=== PATIENT | female | born 1985 | race Hispanic/Latino ===

== ENCOUNTER 2017-05-01 07:15 | Inpatient (IN) | payer OTHER ==
[~2017-05-01] VITALS: Ht 157.5 cm; Wt 96.6 kg
[~2017-05-01 07:15] MED LIST: CETI-114 PO; COL100L PO; IBUP-1152 PO; PER5 PO
[2017-05-01] MEDS ORDERED: Phenylephrine/NS-PF 100 mCg/mL 5 mL Syringe IVPUSH ONE (15:46)
[2017-05-01] MEDS ORDERED: Morphine PF 1 mg/mL 10 mL Inj ONE (15:46)
[2017-05-01] MEDS ORDERED: Oxytocin 10 Unit/mL Inj ONE (15:46)
[2017-05-01] MEDS ORDERED: Ondansetron 2 mg/mL 2 mL Inj ONE (15:46)
[2017-05-01] MEDS ORDERED: Lactated Ringer's 1,000 ML IV SCH ×2 (15:53→20:01)
[2017-05-01] MEDS ORDERED: Hemorrhage Kit, Post Partum XX ONE ×2 (15:55→20:05)
[2017-05-01] MEDS ORDERED: Methylergonovine 0.2 mg/mL Inj IM PRN ×2 (15:55→20:05)
[2017-05-01] MEDS ORDERED: CeFAZolin Inj 2 GM in IV Premix 1 EACH IV SCH (15:55)
[2017-05-01] MEDS ORDERED: Sodium Citrate-Citric Acid 15 mL Solution PO SCH (15:55)
[2017-05-01] MEDS ORDERED: Carboprost 250 mCg/mL Inj IM PRN ×2 (15:55→20:05)
[2017-05-01] MEDS ORDERED: Oxytocin 10 Unit/mL Inj IM PRN ×2 (15:55→20:05)
[2017-05-01] MEDS: Lactated Ringer's 1,000 ML IV SCH ×2 (16:35→19:43)
[2017-05-01 16:41] LABS: Mean Corpuscular Hemoglobin 29.5 pg (27.0-35.0); Mean Corpuscular Volume 83.9 fL (81-100)
--- NOTE | 2017-05-01 18:25 | HP ---
[address] [address] HISTORY AND PHYSICAL PATIENT: TRISTAN SANDHU : 1985 MR#: [id number] ADMIT: 05/01/2017 JOB ID: [id number] [facility] NOTE: DATE: 05/01/2017 IDENTIFICATION: This patient is a 31-year-old, AB2, woman. CHIEF COMPLAINT: At 38-1/2 week , chronic hypertension, progressive, admission for repeat section. HISTORY OF PRESENT ILLNESS: This patient has been followed prenatally at [facility], see record for details. Due date is May 12, 2017. The patient has previously had a section for delivery of 5 pound 3 ounce baby at 39+ weeks long. was complicated by chronic hypertension. The patient requested scheduled repeat with current , originally scheduled for May 06, 2017. However, in spite of ongoing hypertension management with atenolol and Lasix, as orchestrated by Dr. Pedro Lal, perinatologist at the [facility], blood pressures have been gradually increasing in the third trimester, with more and more diastolic readings of 90 or above, and today with blood pressure readings in the office of 140/104 and 126/100. The higher readings warrant delivery today as opposed to waiting until May 06, 2017 as originally planned, as there is gradually increasing risks for mother and baby. There has been no proteinuria, preeclampsia labs have been okay, and thus chronic hypertension with some liability and progressively increasing values in the late third trimester are what have been noted. Patient understands risks of which she has requested. She has understood these to include bleeding, infection, injury to the urinary tract and bowel, anesthetic risks, deep venous thrombosis and pulmonary embolus, postoperative pain, wound problems, etc. She also knows that blood pressure could be an issue also postop and we will closely follow blood pressure and continue atenolol and Lasix potentially, as needed. All questions have been answered, no guarantees have been stated or implied, and patient has signed informed consent for surgery. In summary, then, this patient is being admitted to [facility] in the evening of May 01, 2017 for repeat section at 3-1/2 weeks long in setting of progressive chronic hypertension, in spite of medications. PHYSICAL EXAMINATION: On admission, height 62 inches, weight 213 pounds. Blood pressure 140/104 then 126/100 in the office. Neck: No thyromegaly. Lungs: Clear to auscultation and percussion. Heart: Regular in rate and rhythm. Abdomen: Fundal height 40-1/2 cm. Positive heartbeat. Pelvic examination deferred. DIAGNOSTIC DATA: Preoperative hemoglobin 13.6, platelets 286, creatinine 0.47. Uric acid 5.9. AST 17, ALT 10. IMPRESSION: 1. A 38 and 3/7ths weeks gestation. 2. Chronic hypertension, progressively increasing systolic and diastolic blood pressure readings, using atenolol and Lasix as orchestrated per Dr. Adan Lal, perinatologist at [facility]. 3. Prior section, with patient-requested repeat section for delivery, to occur on the day of admission, in light of progressive chronic hypertension. 4. Increased weight. 5. Anterior placenta, although per ultrasound, placenta does not overlie the prior surgical scar. 6. Declined quad screen, although level 2 sonogram negative. 7. Rh-negative status, received RhoGAM in on February 18, 2017. 8. Rubella immune status. 9. Negative GBS status. 10. Tdap prescribed during the third trimester, received? 11. Reproductive history: a. First -- miscarriage at 8 weeks of gestation, suction dilation and curettage accomplished. b. Second -- delivery at 39+ weeks along, 5 pound 3 ounce baby, labor induced in the setting of increased blood pressure, reported potential " distress" and "tight fit." c. Third -- miscarriage at 7 weeks of gestation, no dilation and curettage. d. Fourth -- current. 12. Mirena intrauterine device is planned for contraception. 13. History of abnormal Pap tests, although recent Pap studies okay reportedly. 14. 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 15. No known drug allergies. 16. Family history of diabetes (aunt and grandmother), hypertension (father, grandparents), lymphoma (grandmother), and twins (patient's mother lost twins at five months). Note that on father of baby's side, a cousin had Down syndrome. PLAN: This patient will be admitted to [facility] on May 01, 2017, on which day she will undergo repeat section in the setting of 38-1/2 week with progressive chronic hypertension.
[2017-05-01] MEDS ORDERED: MetoCLOpramide 5 mg/mL 2 mL Inj IVPUSH PRN (18:55)
[2017-05-01] MEDS ORDERED: Morphine PF 1 mg/mL 10 mL Inj INTRATHEC ONE (18:55)
[2017-05-01] MEDS ORDERED: fentaNYL-PF 50 mCg/mL 2 mL Inj IVPUSH PRN (18:55)
[2017-05-01] MEDS ORDERED: Dexamethasone 4 mg/mL Inj IVPUSH PRN (18:55)
[2017-05-01] MEDS ORDERED: Atropine 0.4 mg/mL Inj IV PRN (18:55)
--- NOTE | 2017-05-01 19:02 | PCM.HPANE ---
Patient Data Surgeon Admitting Provider:Raghav Hankins MD Attending Provider:Raghav Hankins MD Primary Care Physician:Raghav Hankins MD Other Provider:Joseph Powers Anesthesia Reason for Visit Section SECTION Ht/WT & BMI Body Mass Index Allergies Coded Allergies: No Known Allergies (Unverified Allergy, Unknown, 05/01/17) Past Anesthesia History Anesthesia History: Denies:: Abnormal Airway, Anesthesia Reactions, Difficult Intubation, Fam Anesthesia Reaction, Fam Malignant Hypertherm, Malignant Hyperthermia Diabetes History Hx Diabetes?: No Medications Active Scripts IBUPROFEN-Expunged Drug, Do Not Renew! 800 Mg [id number] Mg PO Q6H PRN For Pain # 30 Ref 1 Prov:Raghav Hankins MD 01/07/14 oxyCODone/APAP-Expunged, Do Not Renew! (oxyCODone/Apap 5/325mg-Expunged, Do Not Renew)1 Tab Tablet1-2 Tab PO Q4 PRN For Pain #30 Prov:Raghav Hankins MD 01/07/14 Docusate Sod-Expunged Drug, Do Not Renew! 100 Mg [id number] Mg PO BID #60 Ref 1 Prov:Raghav Hankins MD 01/07/14 Reported Medications Cetirizine-Expunged Drug, Do Not Renew! 10 Mg Tab.chew10 Mg PO BID 12/12/12 History History of ENT Problems?: No HEENT History: Denies:: Abnormal Airway Cataracts Difficult Intubation Dysphagia Glaucoma Hearing Problem Sinus Problem TMJ Denture Type: None Teeth Condition: Within Normal Limits Hx of Heart Problems?: Yes Cardiovascular History: Positive for:: Hypertension Denies:: AICD Abdominal Aortic Aneurism Atrial Fibrillation Cardiac Surgery Chest Pain Congestive Heart Failure Coronary Artery Disease Edema Heart Murmur Irregular Heartbeat Pacemaker Peripheral Vascular Rheumatic Fever Thrombophlebitis Valvular Heart Disease Hx of Respiratory Problem?: Yes Respiratory History: Positive for:: Asthma Denies:: COPD Chest Surgery Cough Dyspnea Emphysema Hemoptysis Oxygen Administration Pneumonia Pulmonary Embolism Tuberculosis Use of C-PAP Machine Use of Inhalers / NEBS Hx Neurologic Problems?: No Neurological History: Denies:: Alzheimer's Disease CVA Dementia Dizziness Headaches Multiple Sclerosis Parkinson's Disease Peripheral Neuropathy Seizures TIA Hx of GI Problems?: Yes Gastrointestinal History: Denies:: Cirrhosis Diverticulitis Gall Bladder Disease Gastroesphageal Reflux Gastrointestinal Bleeding Heartburn Hepatitis Hiatal Hernia Liver Disease Rectal Bleeding Hx of Problems?: No Genitourinary History: Denies:: HX of Hemodialysis Kidney Stones Urinary Tract Infection HX of Peritoneal Dialysis: No Female Hx: Positive for:: Currently Denies:: Endometriosis Pelvic Inflammatory Problems with Breasts? Skin History: Denies:: History Skin Disorders? Pressure Ulcers Hx Musculoskeletal Problems?: No Musculoskeletal History: Denies:: Back Injury Degenerative Joint Fibromyalgia Joint Replacement Musculoskeletal Trauma Myasthenia Gravis Osteoarthritis Rheumatoid Arthritis Systemic Lupus Hx of Psycho/Social Problems?: No Psycho Social History: Denies:: Anxiety Bipolar Disorder Hx Depression Suicide Attempt Hx Surgeries?: No Hx Any Other Health Problems?: No Other History: Denies:: Cancer Endocrine Disease Hospitalization Thyroid Disease History Blood Transfusions: Denies:: Accept Blood Products? Blood Transfuse Reaction Blood Transfusions Hx Diabetes: No Smoking Status: Never Smoker Stop/Bang Risk Assessment Category Category 1A: Patient has history of documented sleep apnea, and HAS NOT received any narcotic, sedative or anesthesia administration during this stay. Category 1B: Patient has history of documented sleep apnea, and HAS received any narcotic , sedative or anesthesia administration during this stay Category 2: Patient has SUSPECTED Obstructive Sleep Apnea, and HAS received any narcotic , sedative or anesthesia administration during this stay. Category 3: Patient has SUSPECTED Obstructive Sleep Apnea and HAS NOT received narcotic, sedative or anesthesia administration during this stay. Category 4: Outpatient in Procedural Areas with known sleep apnea or who screen positive for High Risk via the STOP/BANG questionnaire. Exam Exam General Appearance: Alert, Oriented X3, Cooperative, No Acute Distress HEENT/AIRWAY: MP 2, Mouth Opening (3 FBMO) Lungs: Clear to Auscultation, Normal Air Movement Heart: Exam Unremarkable, Regular Rate/Rhythm, No Murmurs/Rubs/Gallops Meds/Labs/Diagnostics Admission Meds Current Medications Lactated Ringer's (Lr) 1,000 ml @ 125 mls/hr Q8H IV Last administered on t 16:37; Start 05/01/17 at 15:53; Stop 05/01/17 at 23:52 Labs Test 05/01/17 16:20 White Blood Count 17.8th/mm3 (3.8-10.1) Red Blood Count 4.61mil/mm3 (3.90-5.20) Hemoglobin 13.6g/dL (12.0-15.6) Hematocrit 38.7% (35.0-46.0) Mean Corpuscular Volume 83.9fL (81-100) Mean Corpuscular Hemoglobin 29.5pg (27.0-35.0) Mean Corpuscular Hemoglobin Concent 35.1% (32.0-37.0) Red Cell Distribution Width 14.1% (12.3-15.4) Platelet Count 286bil/L (150-400) Hematology Comments Urine Random Creatinine 127mg/dL (16-392) Urine Random Total Protein 11mg/dL (0-15) Urine Protein/Creatinine Ratio 0.09 (0-200) Blood Urea Nitrogen 11mg/dL (6-20) Creatinine 0.47mg/dL (0.57-1.00) Uric Acid 5.9mg/dL (2.6-7.2) Aspartate Amino Transf (AST/SGOT) 17U/L (0-50) Alanine Aminotransferase (ALT/SGPT) 10U/L (0-32) Plan Impression Patient chart reviewed, patient interviewed and anesthestic plan with risks, benefits, and alternatives discussed, and informed consent obtained. NPO per Anesth. Guidelines: Yes (last ate 10 am) ASA Physical Status: ASA2 Mod Systemic Disease Anesthetic Plan: SAB Bene/Risks/Altern/Consents: Yes HP Complete Prior to Induction: Yes Bo Oro MD May 01, 2017 17:34
--- NOTE | 2017-05-01 19:56 | PCM.ANEP1 ---
Post Anesthesia PACU Phase 1 Assessment Anesthetic Administered: SAB Level of Alertness: Awake, talking HERRERA's with Equal Strength: No (SAB still in effect) Pain: No Nausea or Vomiting: No CV Function & Hydration Stable: No Airway Device: N/A Oxygen Delivery: Room Air Lungs: Clear to Auscultation, Normal Air Movement Dermatome Level: T10 (Umbilicus) PACU Phase 2 Assessment Complications: No Follow up Care: N/A Patient Instructions Provided: N/A Bo Oro MD May 01, 2017 19:56
[2017-05-01] MEDS ORDERED: Sodium Chloride LOK Flush 10 mL Syringe IVFLUSH PRN (20:05)
[2017-05-01] MEDS ORDERED: Measles-Mumps-Rubella Vaccine 0.5 mL Inj SUBQ ONE (20:05)
[2017-05-01] MEDS ORDERED: TdaP Vaccine 0.5 mL Inj IM ONE (20:05)
[2017-05-01] MEDS ORDERED: Acetaminophen IV 1,000 MG in IV Premix 1 EACH IV PRN (20:05)
[2017-05-01] MEDS ORDERED: Oxytocin 30 Units/500 mL LR 30 UNITS in IV Premix 1 EACH IV PRN (20:05)
[2017-05-01] MEDS ORDERED: Influenza (Adult) Vaccine 0.5 mL Syringe IM ONE (20:05)
[2017-05-01] MEDS ORDERED: LANOlin HPA 7 Gm Ointment TOPICAL PRN (20:05)
[2017-05-01] MEDS ORDERED: RANITIDINE 150 MG PO SCH (20:30)
--- NOTE | 2017-05-01 21:59 | OP ---
[address] [address] OPERATIVE REPORT PATIENT: TRISTAN SANDHU : 1985 MR#: [id number] ADMIT: 05/01/2017 JOB ID: [id number] DATE OF SURGERY: 05/01/2017 SURGEON: Raghav Hankins MD ENAMEL SPRAYER: Erwin Gonzales MD ANESTHESIA: Spinal. PREOPERATIVE DIAGNOSIS(ES): 1. A 38-1/2 week . 2. Progressive chronic hypertension. 3. Prior section, with patient-requested repeat section for delivery. POSTOPERATIVE DIAGNOSIS(ES): 1. A 38-1/2 week . 2. Progressive chronic hypertension. 3. Prior section, with patient-requested repeat section for delivery. 4. Very significant abdominal adhesions. PROCEDURES PERFORMED: 1. Repeat low transverse section. 2. Extensive adhesiolysis. INDICATIONS FOR SURGERY: This patient has been followed prenatally in my office, see record. She has chronic hypertension and she has been evaluated by Dr. Adan Lal, perinatologist at the [facility]. She has been using atenolol 25 mg p.o. b.i.d. and Lasix 20 mg p.o. b.i.d. for her blood pressure which has been becoming higher, both systolic and diastolic, during the past few weeks. Today she had diastolic readings repetitively at 100 or greater and it was felt that it would be prudent to deliver the patient now, rather than wait longer from maternal and risk standpoints. She has not been felt to have preeclampsia. Note that with the patient previously having undergone a section, and with her request for a repeat for delivery at this time, she is admitted today for repeat . She has not wanted tubal ligation. FINDINGS AT SURGERY: Upon entrance into the abdomen there were very significant adhesions involving the omentum to the abdominal wall via dense adhesions, and also bladder flap peritoneum up to the mid uterine fundus at via dense adhesions. It was a time consuming experience, greatly lengthening surgery, to accomplish safe adhesiolysis. Note that fetus was in vertex presentation and amniotic fluid was clear. [place] was active and crying and vigorous on the operative field. Ovaries were normal. Fallopian tubes demonstrated some adhesive disease to the midportion of the left fallopian tube, binding the tube to the ovary, and at the distal aspect of the right fallopian tube. These adhesions did not kink the tubes, however. At procedure's close the baby had been delivered, the placenta had been delivered (appearing little bit small perhaps), and baby weighed only 5 pounds 11 ounces. There was no bleeding occurring at the any site. The urine was clear. It certainly is anticipated the patient and baby will do very well during the postoperative/ timeframe. PROCEDURE IN DETAIL: The patient was placed in the supine position on the operating table and then repositioned in the left lateral tilt position. Spinal anesthesia had been placed and activated. A Ibarra catheter was placed. The abdomen was prepped and draped in the usual sterile manner and a time-out was taken. A Pfannenstiel incision was then made, a little bit caudal to the prior scar, then the incision was carried through the skin, subcutaneous tissues, and fascial layer. Rectus muscles then from the overlying fascia using blunt and sharp dissection, and some adhesions were noted to be very dense. Rectus muscles then in midline using blunt dissection and cautery, and then omental adhesions significantly encountered, binding the omentum to the anterior abdominal wall peritoneum. These required cautery primarily for dissection which was tedious. Significant adhesions were also noted involving the bladder and peritoneum to the anterior mid fundus. These required extensive sharp dissection and cautery until ultimately the bladder was moved well away from the lower uterine segment. The bladder was well protected during the adhesiolysis procedures. A transverse incision was then made in the lower uterine segment and carried down to the amniotic sac. The amniotic sac was then ruptured and clear fluid recovered. The head was brought through the uterine incision, followed by the body and extremities. The baby was active and crying and vigorous on the operative field. The umbilical cord was clamped and cut directly and the baby was taken to a warmer for further management. Delayed cord clamping was not undertaken due to placental edge from the anterior uterine wall attachment point simply due to its marginal position in the region of the lower uterine segment where the incision was made. I simply did not want to have any potential bleeding through placental edge. The placenta with membranes was then massaged, with uterine fundal massage, and the uterus was exteriorized. The uterine cavity was gauze curettaged. The cervix was noted to be open at about 2 cm dilated. The uterine incision was then closed in a running locking manner using #1 chromic suture. Hemostasis was noted to be complete. Due to incisional placement in the lower segment, and scarring factors and hypervascularity factors, the decision was made to not over-sew a 2nd layer as this would have been felt to offer additional risks to bladder and vascularity/blood loss. Ovaries and tubes were inspected, as was the bladder area. Cul-de-sac was irrigated then and suctioned of blood and clots and fluid. The uterus was returned to the abdominal cavity and the uterine wall was then inspected a final time. A sheet of Interceed was then placed over the lower uterine segment incision and upper bladder edge. Instrument, needle, and sponge counts were all found to be correct at this point, as well as later in the case. The rectus muscles were then drawn together across the midline using interrupted stitches of #1 chromic suture. Subfascial plane was then inspected and light cautery applied where needed. Fascial layer was then closed in a running manner using #1 PDS. Subcutaneous tissues were then extensively irrigated and then tissues reapproximated using 3-0 Vicryl suture interrupted stitches. The skin incision was then closed with reed and a pressure dressing was applied. The uterus was then expressed of blood and clots and fluid. The procedure was thus complete. The patient was taken to her room for recovery. ESTIMATED BLOOD LOSS: 450 mL. COMPLICATIONS: None. PROGNOSIS: Good for surgical recovery.
[2017-05-02] MEDS: CeFAZolin Inj 2 GM in IV Premix 1 EACH IV SCH ×2 (02:00→10:01)
[2017-05-02 07:58] LABS: Mean Corpuscular Hemoglobin 29.1 pg (27.0-35.0); Mean Corpuscular Volume 85.6 fL (81-100)
[2017-05-02] MEDS: oxyCODONE-Acetamin 5-325 mg Tablet PO PRN ×2 (16:50→20:40)
[2017-05-02] MEDS: hydrOXYzine Pamoate 25 mg Capsule PO PRN (20:41)
[2017-05-03] MEDS: oxyCODONE-Acetamin 5-325 mg Tablet PO PRN ×4 (01:29→14:14)
[2017-05-03] MEDS: hydrOXYzine Pamoate 25 mg Capsule PO PRN (10:10)
--- NOTE | 2017-05-03 15:19 | PCM.DIOB ---
Obstetrical Disch Instruction Dates of Hospitalization Date of Hospital Admission May 01, 2017 at 15:45 Providers Admitting Physician: Raghav Hankins MD Primary Care Physician: Raghav Hankins MD Attending Physician: Raghav Hankins MD Discharge Diagnosis Problems: (1) Status: Acute ICD Code: Z33.1 Diet Discharge Diet: No restrictions Activity Discharge Activity-General: Pelvic Rest for 6 weeks, No lifting >10 pounds for 4-6 weeks Dressing and Incisional Care Dressing Care: Allow Steri Stripes to fall off Hygiene: May shower, DO NOT soak incision under water Follow Up Plan Follow-up appointment: Weeks (Followup at [facility] [place] 2 [place] 6 weeks for postoperative checkups.) Call your provider for: Fever or Chills, Shortness of breath, Heavy vaginal bleeding, Red painful breasts Raghav Hankins MD May 03, 2017 15:19
[2017-05-03] MEDS ORDERED: OXYC1TAB24 PO (15:26)
[2017-05-03] MEDS ORDERED: DOCU-41 PO (15:26)
[2017-05-03] MEDS ORDERED: IBUP-1827 PO (15:26)
[2017-05-03] MEDS ORDERED: HYDR-3797 PO (15:26)
[2017-05-03 16:09] VITALS: BP 104/41; PULSE 78; RESP 18
--- NOTE | 2017-05-03 19:17 | PROG NOTE ---
[address] [address] PROGRESS NOTE PATIENT: TRISTAN SANDHU : 1985 MR#: [id number] ADMIT: 05/01/2017 JOB ID: [id number] DATE: 05/02/2017 HOSPITAL DAY NUMBER ONE/ DAY NUMBER ONE NOTE: The patient underwent repeat low transverse section in the evening at of May 01, 2017, in the setting of progressive chronic hypertension. In the initial postoperative/ timeframe, the patient did well, with stable vitals, remained afebrile, with reasonable bleeding and pain management, ambulating, and voiding. She has had no leg pain She handled baby well. Note that blood pressure has indeed been reasonable while continuing on atenolol and Lasix. PLAN: Continue postoperative/ care. Anticipate discharge to home tomorrow.
--- NOTE | 2017-05-04 19:08 | DIS ---
[address] [address] DISCHARGE SUMMARY PATIENT: TRISTAN SANDHU : 1985 MR#: [id number] ADMIT: 05/01/2017 JOB ID: [id number] DIS: 05/03/2017 DISCHARGE DIAGNOSES: 1. Thirty-eight and 1/2 week , delivered. 2. Chronic hypertension, progressive. PROCEDURES PERFORMED DURING HOSPITALIZATION: 1. Repeat low transverse section. 2. Spinal anesthesia. HOSPITAL COURSE: The patient was admitted to [facility] on May 01, 2017, on which day she underwent procedures as described above. During the postoperative/ timeframe, patient did well, with stable vitals, continued on the antihypertensive medications, atenolol 25 mg p.o. b.i.d. and Lasix 20 mg p.o. b.i.d. She remained afebrile. Bleeding was reasonable, as was pain control. She had no leg pain or shortness of breath, no incisional problems, no bleeding of concern, and pain management was good. She handled baby well. She was interested in discharge to home on the second postoperative/ day. Note that she had reed removed with benzoin application and half-inch Steri application. DISCHARGE PROGRAM: Patient will call p.r.n., yet otherwise she will follow up at two and at six weeks for postoperative/ checkups. She will observe pelvic rest, not do any heavy lifting for six weeks. DISCHARGE MEDICATIONS: Include Percocet, ibuprofen, Vistaril (used for itching during the hospitalization) and Colace, prescriptions written. She will also use atenolol and Lasix as she has at home, also vitamin, patient having supply of these three medications. Ultimately, we may be able to back off of the Lasix, time will tell. Family physician will take over management of the hypertension after several weeks and determine what ongoing antihypertensive medications are needed, although it is likely that she will continue to need medication as she did during .
--- NOTE | 2017-05-08 11:22 | PATH ---
SURGICAL PATHOLOGY Attending Physician:Raghav Hankins M.D CASE STATUS: Signed Out PATIENT NAME: TRISTAN SANDHU PID: [id number] : 1985 DATE COLLECTED:05/01/2017 00:00 SPECIMEN: Placenta CLINICAL HISTORY: 38 1/2 WEEKS , CHRONIC HYPERTENSION 1). PLACENTA FINAL DIAGNOSIS: Placenta with Umbilical Cord and Membranes: 1. Placenta: 325 grams, which is approximately the 5th percentile for 38-1/2 weeks gestation. Negative for evidence of infarction. Negative for significant inflammation. Negative for significant vascular lesions. 2. Umbilical cord: 7.2 cm in length with three normal blood vessels. Cord is attached 3.5 cm from the placental edge. Negative for significant inflammation. 3. Membranes: Membranes ruptured at the free placental edge. Negative for significant inflammation. ICD10: O13.3 GROSS DESCRIPTION: The specimen is received in formalin, labeled with the patient's name and consists of an intact placenta and includes placental disc (325 g, 20.1 x 13.6 x 2.6 cm), umbilical cord (length-7.2 cm, diameter-1.5 x 0.8 cm) and membranes. The membranes are ruptured at the free edge of the placenta and are semi-translucent. The umbilical cord is attached 3.5 cm from the edge of the placenta and contains 3 vessels. The surface is smooth and shiny with no evidence of meconium. The maternal surface is dark maroon with normal cotyledon formation. The placental disc is spongy with no hematomas, infarcts, nodules, masses, or lesions. Section code: (A) edge of placenta with membranes; (B) umbilical cord; (C-E) placenta, 3 full thickness sections. 05/04/17 ICD-9 CODES: CPT CODES: 1: 20490 Electronically Signed Out Tee Hernandez MD [facility] Pathology [facility] [address], [place] [address] Technical component performed at [facility], [address], [place], [address]
== END 2017-05-03 16:37 | disposition home or self-care (01) | DRG 766 ==
LOC: FBC 15:45 → EDSTATUS 05-06 07:15
PROVIDERS: ADMIT Obstetrics & Gynecology; ATTEND Obstetrics & Gynecology
PROC: 0DNW0ZZ Release Peritoneum, Open Approach (ICD-10-PCS; 2017-05-01)
PROC: 10D00Z1 Extraction of Products of Conception, Low, Open Approach (ICD-10-PCS; principal; 2017-05-01 18:00)
DX: O10.92 Unspecified pre-existing hypertension complicating childbirth (principal); O34.211 Maternal care for low transverse scar from previous cesarean delivery; Z3A.38 38 weeks gestation of pregnancy; O26.03 Excessive weight gain in pregnancy, third trimester; O09.293 Supervision of pregnancy with other poor reproductive or obstetric history, third trimester; O99.89 Other specified diseases and conditions complicating pregnancy, childbirth and the puerperium; N73.6 Female pelvic peritoneal adhesions (postinfective); Z37.0 Single live birth; Z68.39 Body mass index [BMI] 39.0-39.9, adult